=== PATIENT | female | born 1990 | race Caucasian/White ===

== ENCOUNTER 2017-12-23 18:48 | Emergency (ER) | payer OTHER ==
[~2017-12-23] VITALS: Ht 167.6 cm; Wt 117.5 kg
[2017-12-23] MEDS ORDERED: MEDROL DOSEPAK4 MG PO (20:35)
[2017-12-23] MEDS ORDERED: VALIUM5 MG PO (20:35)
[2017-12-23] MEDS ORDERED: NORCO 5/3251 TABLET PO (20:35)
[2017-12-23 20:55] VITALS: BP 131/86
== END 2017-12-23 20:57 | disposition home or self-care (01) ==
LOC: EME 18:48
DX: M54.5 Low back pain (principal); G89.29 Other chronic pain; F41.9 Anxiety disorder, unspecified; M51.36 Other intervertebral disc degeneration, lumbar region; F32.9 Major depressive disorder, single episode, unspecified; Z90.49 Acquired absence of other specified parts of digestive tract; Z88.5 Allergy status to narcotic agent
CPT/HCPCS: 99281; 99284